=== PATIENT | female | born 1980 | race Caucasian/White ===

== ENCOUNTER → 2016-08-20 | Outpatient (CLI) | payer OTHER ==
[~2016-08-20] VITALS: Ht 162.6 cm; Wt 132.0 kg
[~2016-08-20] MED LIST: 8 HOUR PAIN RE650 MG PO; BENADRYL50 MG PO; CEFDINIR300 MG PO; CELEXA20 MG PO; CYCLOBENZAPRINE10 MG PO; DIAZEPAM5 MG PO; DOCUSATE SODIU100 MG PO; ESCITALOPRAM OX20 MG PO; FLEXERIL10 MG PO; FLUTICASONE PRO16 GM BOTH NARES; LEVO-T125 MCG PO; LEVOTHYROXINE125 MCG PO; LEXAPRO10 MG PO; LEXAPRO20 MG PO; MACROBID100 MG PO; MIRALAX255 GM PO; MONUROL SACHET 33 GM PO; OXAYDO5 MG PO; OXYCODONE-APAP1 EACH PO; PERCOCET 5/31 TABLET PO; PRENATAL TABLE1 EAC3 PO; PROBIOTIC1 EAC1 PO; PROMETHAZINE HC25 M1 PO; ROXICODONE5 MG PO; SERTRALINE HCL25 MG PO; SYMBICORT60 INHALAT IH; UNISOM SLEEP AI25 MG PO; VITAMIN B-2100 MG PO; VITAMIN B-6100 MG PO; ZANTAC150 MG PO; ZOFRAN ODT4 MG PO; ZOFRAN4 MG PO
[2016-08-20 16:24] VITALS: BP 128/81
== END | disposition home or self-care (01) ==
LOC: IVINF 16:06
DX: Z31.82 Encounter for Rh incompatibility status (principal)
CPT/HCPCS: 96372

== ENCOUNTER → 2017-01-15 | Outpatient (CLI) | payer OTHER ==
[~2017-01-15] VITALS: Ht 162.6 cm; Wt 61.0 kg
[~2017-01-15] MED LIST changes: +MUCINEX1200 MG PO
[2017-01-15 09:01] VITALS: BP 127/72
== END | disposition home or self-care (01) ==
LOC: IVINF 08:55
DX: Z31.82 Encounter for Rh incompatibility status (principal); Z3A.00 Weeks of gestation of pregnancy not specified
CPT/HCPCS: 96372; J2790

== ENCOUNTER 2017-03-12 05:00 | Inpatient (IN) | payer OTHER ==
[~2017-03-12] VITALS: Ht 162.6 cm; Wt 137.2 kg
[2017-03-12 05:22] VITALS: BP 135/84
[2017-03-12 06:28] LABS: POINT-OF-CARE METER ID UU13113801
[2017-03-12 06:45] LABS: EOSINOPHIL (%) 1.6 % (0-5); EOSINOPHIL COUNT 0.1 K/uL (0-0.3); HEMATOCRIT 32.5 % (36.0-46.0); IMMATURE GRANULOCYTE COUNT 0.1 K/uL; INSTRUMENT ABS NEUTROPHIL CT 4.9 K/uL; LYMPHOCYTE COUNT 1.2 K/uL (1.0-2.8); MCH 34.2 PG (29.0-34.0); MCHC 35.1 G/DL (30.0-36.0); MCV 97.6 FL (83-99); MEAN PLAT.VOLUME 10.8 uM^3 (9.5-12.4); MONOCYTE (%) 6.7 % (3-12); MONOCYTE COUNT 0.5 K/uL (0-0.8); NEUTROPHIL (%) 72.5 % (45-76); NEUTROPHIL COUNT 4.9 K/uL (1.8-6.4); PLATELET COUNT 126 K/uL (156-360); RBC DIS.WIDTH-CV 14.8 % (11.8-14.6); RBC DIS.WIDTH-SD 52.6 % (39-53); RED BLOOD COUNT 3.33 M/uL (3.80-5.20); WHITE BLOOD COUNT 6.8 K/uL (4.1-10.2)
[2017-03-12 10:17] LABS: POINT-OF-CARE METER ID UU13113675
[2017-03-12 14:17] VITALS: BP 114/66
[2017-03-12 15:08] VITALS: BP 116/63
[2017-03-12 16:37] VITALS: BP 108/60
[2017-03-13 06:33] LABS: EOSINOPHIL (%) 1.9 % (0-5); EOSINOPHIL COUNT 0.2 K/uL (0-0.3); HEMATOCRIT 31.7 % (36.0-46.0); IMMATURE GRANULOCYTE (%) 0.6 % (0.0-0.7); IMMATURE GRANULOCYTE COUNT 0.1 K/uL; INSTRUMENT ABS NEUTROPHIL CT 6.2 K/uL; MCH 33.4 PG (29.0-34.0); MCHC 33.8 G/DL (30.0-36.0); MCV 99.1 FL (83-99); MEAN PLAT.VOLUME 10.8 uM^3 (9.5-12.4); MONOCYTE (%) 6.9 % (3-12); MONOCYTE COUNT 0.6 K/uL (0-0.8); NEUTROPHIL (%) 77.7 % (45-76); NEUTROPHIL COUNT 6.2 K/uL (1.8-6.4); PLATELET COUNT 139 K/uL (156-360); RBC DIS.WIDTH-CV 15.1 % (11.8-14.6); RBC DIS.WIDTH-SD 54.4 % (39-53)
[2017-03-13 07:10] VITALS: BP 112/63
[2017-03-13 10:50] VITALS: BP 121/65
[2017-03-13 12:46] LABS: POINT-OF-CARE METER ID UU13113692
[2017-03-13 12:46] LABS: POINT-OF-CARE METER ID UU13113692
[2017-03-13 14:30] VITALS: BP 114/67
[2017-03-13 19:31] VITALS: BP 118/77
[2017-03-13 23:00] VITALS: BP 120/76
[2017-03-14 02:47] VITALS: BP 126/74
[2017-03-14 07:44] VITALS: BP 128/85
[2017-03-14 15:58] VITALS: BP 126/88
[2017-03-14 20:11] VITALS: BP 138/86
[2017-03-15 07:20] VITALS: BP 138/86
[2017-03-15 15:30] VITALS: BP 150/91
[2017-03-15 17:52] VITALS: BP 138/81
[2017-03-16 07:40] VITALS: BP 143/74
[2017-03-16] MEDS ORDERED: ENDOCET 5-3251 EACH PO (08:46)
[2017-03-16] MEDS ORDERED: IBUPROFEN800 MG PO (08:46)
[2017-03-16] MEDS ORDERED: PUMP IN STYLE1 EACH MC (09:50)
[2017-03-16 14:40] VITALS: BP 124/80
== END 2017-03-16 19:05 | disposition home or self-care (01) | DRG 765 ==
LOC: 2WEST 05:00 → 2SOUTH 10:26 → 2WEST 03-16 19:05
PROVIDERS: Obstetrics & Gynecology Obstetrics
DX: O34.211 Maternal care for low transverse scar from previous cesarean delivery (principal); Z30.2 Encounter for sterilization; O40.3XX0 Polyhydramnios, third trimester, not applicable or unspecified; O99.02 Anemia complicating childbirth; D62 Acute posthemorrhagic anemia; O24.420 Gestational diabetes mellitus in childbirth, diet controlled; O99.284 Endocrine, nutritional and metabolic diseases complicating childbirth; E03.9 Hypothyroidism, unspecified; O99.214 Obesity complicating childbirth; E66.01 Morbid (severe) obesity due to excess calories; E65 Localized adiposity; O99.344 Other mental disorders complicating childbirth; F32.9 Major depressive disorder, single episode, unspecified; O22.43 Hemorrhoids in pregnancy, third trimester; Z68.43 Body mass index [BMI] 50.0-59.9, adult; Z98.1 Arthrodesis status; Z3A.37 37 weeks gestation of pregnancy; Z37.0 Single live birth
CPT/HCPCS: 36415; 59025; 82948; 83030; 83036; 84439; 84443; 85025; 86850; 86870; 86900; 86901; 86905; 86920; 87081; 87480; 87510; 87660; 88302; C1776; J0690; J1200; J1885; J2175; J2274; J2300; J2405; J2790; J7120